=== PATIENT | male | born 1980 | race Caucasian/White ===

== ENCOUNTER 2017-12-23 13:58 | Inpatient (IN) | payer SELFPAY ==
[2017-12-23 17:34] VITALS: BMI 31.5
--- NOTE | 2017-12-23 18:39 | HP ---
COWS - Scale Resting Pulse: 1= [place] 81-100 Sweatin= Chills/Flushing Restless Observation: 1= Difficult to Sit Still Pupil Size: 1= Pupils >than Normal Bone or Joint Aches: 4=Acute Joint/Muscle Pain Runny Nose/ Eye Tearin= Nasal Congestion GI Upset > 30mins: 2= Nausea/Diarrhea Tremor Observation: 2= Slight Tremor Visible Yawning Observation: 1= 1-2x During Session Anxiety or Irritability: 2=Irritable/Anxious Goose Flesh Skin: 3=Piloerection COWS Score: 19 CIWA Score - CIWA Score Nausea/Vomitin Muscle Tremors: 3 Anxiety: 3 Agitation: 3 Paroxysmal Sweats: 3 Orientation: 0-Oriented Tacttile Disturbances: 0-None Auditory Disturbances: 0-None Visual Disturbances: 0-None Headache: 0-None Present CIWA-Ar Total Score: 15 Admission ROS S - HPI Allergies/Adverse Reactions: Allergies Allergy/AdvReac Type Severity Reaction Status Date / Time No Known Allergies Allergy Verified 12/23/17 18:20 - Ebola screening Have you traveled outside of the country in the last 21 days: No (N) Have you had contact with anyone from an Ebola affected area: No Have you been sick,other than usual withdrawal symptoms: No Do you have a fever: No Patient History - Patient Medical History Hx Anemia: No Hx Asthma: No Hx Chronic Obstructive Pulmonary Disease (COPD): No Hx Cancer: No Hx Cardiac Disorders: No Hx Congestive Heart Failure: No Hx Hypertension: No Hx Hypercholesterolemia: No Hx Pacemaker: No HX Cerebrovascular Accident: No Hx Seizures: No Hx Dementia: No Hx Diabetes: No Hx Gastrointestinal Disorders: No Hx Liver Disease: No Hx Genitourinary Disorders: No Hx Sexually Transmitted Disorders: No Hx Renal Disease (ESRD): No Hx Thyroid Disease: No Hx Human Immunodeficiency Virus (HIV): No Hx Hepatitis C: No Hx Depression: No Hx Suicide Attempt: No Hx Schizophrenia: No - Patient Surgical History Past Surgical History: Yes Hx Neurologic Surgery: No Hx Cataract Extraction: No Hx Cardiac Surgery: No Hx Lung Surgery: No Hx Breast Surgery: No Hx Breast Biopsy: No Hx Abdominal Surgery: No Hx Appendectomy: No Hx Cholecystectomy: No Hx Genitourinary Surgery: No Hx Section: No Hx Orthopedic Surgery: Yes (OPEN REDUCTION WITH INTERNAL FIXATION) Hx Hysterectomy: No Anesthesia Reaction: No - PPD History Previous Implant?: Yes Documented Results: Negative w/proof Date: 06/17/14 - Reproductive History Patient is a Female of Child Bearing Age (11 -55 yrs old): No Patient : No - Smoking Cessation Smoking history: Current every day smoker Have you smoked in the past 12 months: Yes Aproximately how many cigarettes per day: 10 If you are a former smoker, when did you quit?: X3 DAYS AGO Cigars Per Day: 15 Hx Chewing Tobacco Use: No Initiated information on smoking cessation: Yes 'Breaking Loose' booklet given: 12/23/17 - Substance & Tx. History Hx Alcohol Use: Yes Hx Substance Use: Yes (GHB pruiamry drug of use, amphetamines, xtc) Substance Use Type: Alcohol, Prescribed, Tranquilizers Hx Substance Use Treatment: Yes - Substances Abused Alcohol Route: Oral Frequency: 3-6 times per week Amount used: liquor- 1 pint Age of first use: 25 Date of Last Use: 12/23/17 Alprazolam (Xanax) Route: Oral Frequency: Daily Amount used: 1mg Age of first use: 37 Date of Last Use: 12/22/17 Roxycodone Route: Oral Frequency: Daily Amount used: 60mg Age of first use: 31 Date of Last Use: 12/23/17 Family Disease History - Family Disease History Family History: Denies Admission Physical Exam [facility] - Vital Signs Vital Signs: Vital Signs - 24 hr 12/23/17 17:27 Temperature 97.9 F Pulse Rate 100 H Respiratory 18 Rate Blood Pressure 128/74 - Physical General Appearance: Yes: Nourished, Appropriately Dressed, Disheveled, Mild Distress, Alcohol on Breath, Obese, Tremorous, Irritable, Sweating, Anxious HEENTM: Yes: EOMI, Hearing grossly Normal, Normocephalic, Normal Voice, [place], Pharynx Normal, Nasal Congestion, Rhinorrhea Respiratory: Yes: Within Normal Limits, Chest Non-Tender, Lungs Clear, Normal Breath Sounds, No Respiratory Distress, No Accessory Muscle Use Neck: Yes: Within Normal Limits, No masses,lesions,Nodules, Supple, Trachea in good position Breast: Yes: Breast Exam Deferred Cardiology: Yes: Within Normal Limits, Regular Rhythm, Regular Rate, S1, S2 Abdominal: Yes: Within Normal Limits, Normal Bowel Sounds, Non Tender, Flat, Soft Genitourinary: Yes: Within Normal Limits Back: Yes: Within Normal Limits, Normal Inspection Musculoskeletal: Yes: full range of Motion, Gait Steady, Pelvis Stable, Back pain, Muscle Pain Extremities: Yes: Normal Capillary Refill, Normal Range of Motion, Non-Tender, Tremors Neurological: Yes: research biologist II-XII NML intact, Fully Oriented, Alert, Motor Strength 5/5, Normal Response Integumentary: Yes: Warm, Diaphoresis, Moist Lymphatic: Yes: Within Normal Limits - Addiitonal Findings: withdrawal sx - Diagnostic (1) Alcohol dependence with uncomplicated withdrawal Current Visit: Yes Status: Acute (2) Dehydration Current Visit: Yes Status: Acute (3) Gammahydroxy butarate (GHB) use disorder, mild, abuse Current Visit: Yes Status: Acute (4) History of pulmonary embolism Current Visit: Yes Status: Acute (5) Nicotine dependence Current Visit: Yes Status: Acute (6) Opioid dependence with withdrawal Current Visit: Yes Status: Acute (7) Sedative, hypnotic or anxiolytic dependence with withdrawal, uncomplicated Current Visit: Yes Status: Acute (8) Substance induced mood disorder Current Visit: No Status: Acute Cleared for Admission [facility] - Detox or Rehab [facility] Level of Care: Medically Managed Detox Regimen/Protocol: Methadone/Valium [facility] Breath Alcohol Content Breath Alcohol Content: 0.144 Urine Drug Screen - Results Drug Screen Negative: No Urine Drug Screen Results: AMP-Amphetamines, MET-Methamphetamine, BZO- Benzodiazepines, OXY-Oxycodone
[2017-12-23] MEDS ORDERED: ACETAMINOPHEN 325 MG TABLET (FP) PO PRN (18:40)
[2017-12-23] MEDS ORDERED: LOPERAMIDE HCL 2 MG CAPSULE PO PRN (18:40)
[2017-12-23] MEDS ORDERED: MENTHOL/PHENOL 1 EACH UD MM PRN (18:40)
[2017-12-23] MEDS ORDERED: MAGNESIUM HYDROX 2400MG/30ML ORAL SUSPENSION 30 ML CUP PO PRN (18:40)
[2017-12-23] MEDS ORDERED: MAGNESIUM CITRATE 300 ML BOTTLE PO PRN (18:40)
[2017-12-23] MEDS ORDERED: METHADONE HCL 10 MG TABLET (FOR DETOX USE ONLY) PO ONE ×2 (18:40→23:00)
[2017-12-23] MEDS ORDERED: guaiFENesin/D-METHORPHAN HB 10 ML UNIT-DOSE CUPS PO PRN (18:40)
[2017-12-23] MEDS ORDERED: MAG HYDROX/AL HYDROX/SIMETH 30 ML UNIT-DOSE CUP PO PRN (18:40)
[2017-12-23] MEDS ORDERED: diazePAM 5 MG TABLET PO ONE (18:40)
[2017-12-23] MEDS ORDERED: IBUPROFEN 400 MG TABLET (FP) PO PRN (18:40)
[2017-12-23] MEDS ORDERED: P-EPHED 60MG/TRIPROLIDI 2.5MG TABLET PO PRN (18:40)
[2017-12-23] MEDS ORDERED: NICOTINE POLACRILEX 2 MG GUM BUC PRN (18:42)
[2017-12-23] MEDS: PANTOPRAZOLE 40 MG TABLET (FP) PO SCH (20:29)
[2017-12-23] MEDS: NICOTINE 14 MG/24 HOURS TOPICAL PATCH TD SCH (20:35)
[2017-12-23] MEDS: CYCLOBENZAPRINE HCL 5 MG TABLET PO SCH (22:17)
[2017-12-23] MEDS: THIAMINE HCL 100 MG TABLET (FP) PO SCH (22:17)
[2017-12-23] MEDS: NAPROXEN 500 MG TABLET (FP) PO SCH (22:18)
[2017-12-23] MEDS: diazePAM 5 MG TABLET PO SCH (22:18)
[2017-12-23] MEDS: cloNIDine HCL 0.1 MG TABLET PO SCH (22:18)
[2017-12-23] MEDS: ZOLPIDEM TARTRATE 10 MG TABLET (PARK CARE ONLY) PO PRN (22:18)
[2017-12-23 22:19] LABS: URINE APPEARANCE CLEAR; URINE BILIRUBIN NEGATIVE (NEGATIVE); URINE BLOOD NEGATIVE (NEGATIVE); URINE COLOR COLORLESS; URINE GLUCOSE (UA) NEGATIVE (NEGATIVE); URINE KETONE NEGATIVE (NEGATIVE); URINE LEUK ESTERASE NEGATIVE (NEGATIVE); URINE NITRITE NEGATIVE (NEGATIVE); URINE PROTEIN NEGATIVE (NEGATIVE); URINE UROBILINOGEN NEGATIVE mg/dL (0.2-1.0)
[2017-12-24] MEDS: CYCLOBENZAPRINE HCL 5 MG TABLET PO SCH ×3 (05:46→22:26)
[2017-12-24] MEDS: diazePAM 5 MG TABLET PO SCH ×3 (05:46→22:26)
[2017-12-24] MEDS: PANTOPRAZOLE 40 MG TABLET (FP) PO SCH (09:58)
[2017-12-24] MEDS: diazePAM 5 MG TABLET PO PRN ×2 (09:58→17:42)
[2017-12-24] MEDS: PRENATAL VITAMINS W/ FOLIC ACID TABLET (FP) PO SCH (09:58)
[2017-12-24] MEDS: NICOTINE 14 MG/24 HOURS TOPICAL PATCH TD SCH (09:59)
[2017-12-24] MEDS: cloNIDine HCL 0.1 MG TABLET PO SCH ×2 (09:59→22:26)
[2017-12-24] MEDS: NAPROXEN 500 MG TABLET (FP) PO SCH ×2 (09:59→22:26)
[2017-12-24] MEDS ORDERED: METHADONE HCL 10 MG TABLET (FOR DETOX USE ONLY) PO SCH (10:00)
[2017-12-24 10:05] LABS: HEMATOCRIT 44.3 % (35.4-49); HEMOGLOBIN 14.3 GM/dL (11.7-16.9); MCH 29.3 pg (25.7-33.7); MCHC 32.3 g/dl (32.0-35.9); MEAN CELL VOLUME 90.8 fl (80-96); MEAN PLT VOLUME 9.8 fl (7.5-11.1); PLATELET COUNT 204 K/MM3 (134-434); RBC 4.87 M/mm3 (4.00-5.60); RDW 14.1 % (11.9-15.9)
[2017-12-24 10:17] LABS: CHLORIDE 101 mmol/L (98-107); POTASSIUM 3.6 mmol/L (3.5-5.1); SODIUM 141 mmol/L (136-145)
[2017-12-24 10:34] LABS: ALBUMIN 3.6 g/dl (3.4-5.0); ALK PHOS 73 U/L (45-117); ANION GAP 8 (8-16); BILIRUBIN,TOTAL 1.1 mg/dL (0.2-1.0); BLOOD UREA NITROGEN 18 mg/dL (7-18); CALCIUM 8.2 mg/dL (8.5-10.1); CO2 32 mmol/L (21-32); CREATININE 1.4 mg/dL (0.7-1.3); GLUCOSE,RANDOM 81 mg/dL (74-106); SGOT/AST 42 U/L (15-37); SGPT/ALT 22 U/L (12-78); TOT PROT 5.9 g/dl (6.4-8.2)
--- NOTE | 2017-12-24 11:09 | CONSULT ---
[facility] Psychiatric Consult - Data Date of interview: 12/24/17 Admission source: [facility] Identifying data: Patient is approached at bedside for the psychiatric evaluation.Mr Brown,politely,declines conversation with this rfp writer." I am fine ,just tired.I don't have issues to discuss with psychiatrists.Thank you.I have been getting all the medications that I need." Nursing staff is made aware.
--- NOTE | 2017-12-24 14:25 | PN ---
[facility] Progress Note Note: Admission and Repeat ECG results noted. Patient denies any current chest pain, SOB, and dizziness. Patient denies any known history of cardiac disease or previous ECG abnormality. Patient advised to follow-up with APRN Dr. Mejia after discharge from detox for further medical assessment. Pt. verbalized understanding of recommendation. Miguel Angel Christian NP
--- NOTE | 2017-12-24 16:29 | PN ---
[facility] CIWA - CIWA Score Nausea/Vomitin-No Nausea/No Vomiting Muscle Tremors: 4-Moderate,w/Arms Extend Anxiety: 4-Mod. Anxious/Guarded Agitation: 4-Moderately Restless Paroxysmal Sweats: 1-Minimal Palms Moist Orientation: 0-Oriented Tacttile Disturbances: 3-Moderate Itch/Numb/Burn Auditory Disturbances: 0-None Visual Disturbances: 0-None Headache: 0-None Present CIWA-Ar Total Score: 16 S COWS - Scale Resting Pulse: 2= [place] 101-120 Sweatin= Chills/Flushing Restless Observation: 3= Extraneous Movement Pupil Size: 0= Normal to Room Light Bone or Joint Aches: 4=Acute Joint/Muscle Pain Runny Nose/ Eye Tearin= Nasal Congestion GI Upset > 30mins: 1= Stomach Cramp Tremor Observation of Outstretched Hands: 1= Tremor [place], Not Seen Yawning Observation: 1= 1-2x During Session Anxiety or Irritability: 2=Irritable/Anxious Goose Flesh Skin: 0=Smooth Skin COWS Score: 16 [facility] Progress Note (SOAP) Subjective: ANXIETY,SWEATS/CHILLS,SLIGHT TREMORS. Objective: 12/24/17 16:30 Vital Signs 12/24/17 12/24/17 09:17 13:00 Temperature 97.0 F L 96.8 F L Pulse Rate 106 H 106 H Respiratory 20 16 Rate Blood Pressure 93/67 99/69 Laboratory Last Values WBC 6.0 K/mm3 (4.0-10.0) D 12/24/17 07:00 RBC 4.87 M/mm3 (4.00-5.60) 12/24/17 07:00 Hgb 14.3 GM/dL (11.7-16.9) D 12/24/17 07:00 Hct 44.3 % (35.4-49) D 12/24/17 07:00 MCV 90.8 fl (80-96) 12/24/17 07:00 MCH 29.3 pg (25.7-33.7) 12/24/17 07:00 MCHC 32.3 g/dl (32.0-35.9) 12/24/17 07:00 RDW 14.1 % (11.9-15.9) 12/24/17 07:00 Plt Count 204 K/MM3 (134-434) D 12/24/17 07:00 MPV 9.8 fl (7.5-11.1) D 12/24/17 07:00 Sodium 141 mmol/L (136-145) 12/24/17 07:00 Potassium 3.6 mmol/L (3.5-5.1) 12/24/17 07:00 Chloride 101 mmol/L (98-107) 12/24/17 07:00 Carbon Dioxide 32 mmol/L (21-32) D 12/24/17 07:00 Anion Gap 8 (8-16) 12/24/17 07:00 BUN 18 mg/dL (7-18) D 12/24/17 07:00 Creatinine 1.4 mg/dL (0.7-1.3) H D 12/24/17 07:00 Creat Clearance w eGFR 57.03 (>60) 12/24/17 07:00 Random Glucose 81 mg/dL (74-106) D 12/24/17 07:00 Calcium 8.2 mg/dL (8.5-10.1) L 12/24/17 07:00 Total Bilirubin 1.1 mg/dL (0.2-1.0) H D 12/24/17 07:00 AST 42 U/L (15-37) H D 12/24/17 07:00 ALT 22 U/L (12-78) D 12/24/17 07:00 Alkaline Phosphatase 73 U/L (45-117) 12/24/17 07:00 Total Protein 5.9 g/dl (6.4-8.2) L 12/24/17 07:00 Albumin 3.6 g/dl (3.4-5.0) D 12/24/17 07:00 Urine Color Colorless 12/23/17 22:04 Urine Appearance Clear 12/23/17 22:04 Urine pH 6.0 (5.0-8.0) 12/23/17 22:04 Ur Specific [place] 1.003 (1.001-1.035) 12/23/17 22:04 Urine Protein Negative (NEGATIVE) 12/23/17 22:04 Urine Glucose (UA) Negative (NEGATIVE) 12/23/17 22:04 Urine Ketones Negative (NEGATIVE) 12/23/17 22:04 Urine Blood Negative (NEGATIVE) 12/23/17 22:04 Urine Nitrite Negative (NEGATIVE) 12/23/17 22:04 Urine Bilirubin Negative (NEGATIVE) 12/23/17 22:04 Urine Urobilinogen Negative mg/dL (0.2-1.0) 12/23/17 22:04 Ur Leukocyte Esterase Negative (NEGATIVE) 12/23/17 22:04 RPR Titer Nonreactive (NONREACTIVE) 12/24/17 07:00 HIV 1&2 Antibody Screen Negative 12/24/17 07:00 HIV P24 Antigen Negative 12/24/17 07:00 Assessment: 12/24/17 16:31 WITHDRAWAL SX Plan: CONTINUE DETOX INCREASE PO FLUIDS.
[2017-12-24] MEDS: ZOLPIDEM TARTRATE 10 MG TABLET (PARK CARE ONLY) PO PRN (22:26)
[2017-12-24] MEDS: THIAMINE HCL 100 MG TABLET (FP) PO SCH (22:26)
[2017-12-25] MEDS: CYCLOBENZAPRINE HCL 5 MG TABLET PO SCH ×3 (05:36→22:28)
[2017-12-25] MEDS: NAPROXEN 500 MG TABLET (FP) PO SCH ×2 (10:31→22:28)
[2017-12-25] MEDS: diazePAM 5 MG TABLET PO SCH ×2 (10:31→22:28)
[2017-12-25] MEDS: METHADONE HCL 5 MG TABLET (FOR DETOX USE ONLY) PO SCH (10:31)
[2017-12-25] MEDS: PRENATAL VITAMINS W/ FOLIC ACID TABLET (FP) PO SCH (10:31)
[2017-12-25] MEDS: cloNIDine HCL 0.1 MG TABLET PO SCH ×2 (10:31→22:28)
[2017-12-25] MEDS: PANTOPRAZOLE 40 MG TABLET (FP) PO SCH (10:31)
[2017-12-25] MEDS: NICOTINE 14 MG/24 HOURS TOPICAL PATCH TD SCH (10:41)
[2017-12-25] MEDS: diazePAM 5 MG TABLET PO PRN ×2 (12:00→17:13)
--- NOTE | 2017-12-25 14:59 | PN ---
[facility] CIWA - CIWA Score Nausea/Vomitin-No Nausea/No Vomiting Muscle Tremors: 3 Anxiety: 3 Agitation: 2 Paroxysmal Sweats: 3 Orientation: 0-Oriented Tacttile Disturbances: 2-Mild Itch/Numbness/Burn Auditory Disturbances: 0-None Visual Disturbances: 2-Mild Sensitivity Headache: 0-None Present CIWA-Ar Total Score: 15 [facility] COWS - Scale Resting Pulse: 1= [place] 81-100 Sweatin= Chills/Flushing Restless Observation: 1= Difficult to Sit Still Pupil Size: 0= Normal to Room Light Bone or Joint Aches: 2= Severe Diffuse Aches Runny Nose/ Eye Tearin= None GI Upset > 30mins: 1= Stomach Cramp Tremor Observation of Outstretched Hands: 2= Slight Tremor Visible Yawning Observation: 1= 1-2x During Session Anxiety or Irritability: 2=Irritable/Anxious Goose Flesh Skin: 3=Piloerection COWS Score: 14 [facility] Progress Note (SOAP) Subjective: Stomach Cramping, Tremors, Sweating, Anxious. Objective: PT. A & O X 3, OBSERVED AMBULATING ON UNIT. NO ACUTE DISTRESS. 12/25/17 15:00 Laboratory Tests 12/23/17 12/24/17 12/24/17 22:04 07:00 07:00 WBC 6.0 D RBC 4.87 Hgb 14.3 D Hct 44.3 D MCV 90.8 MCH 29.3 MCHC 32.3 RDW 14.1 Plt Count 204 D MPV 9.8 D Sodium Potassium Chloride Carbon Dioxide Anion Gap BUN Creatinine Creat Clearance w eGFR Random Glucose Calcium Total Bilirubin AST ALT Alkaline Phosphatase Total Protein Albumin Urine Color Colorless Urine Appearance Clear Urine pH 6.0 Ur Specific [place] 1.003 Urine Protein Negative Urine Glucose (UA) Negative Urine Ketones Negative Urine Blood Negative Urine Nitrite Negative Urine Bilirubin Negative Urine Urobilinogen Negative Ur Leukocyte Esterase Negative RPR Titer HIV 1&2 Antibody Screen Negative HIV P24 Antigen Negative 12/24/17 12/24/17 07:00 07:00 WBC RBC Hgb Hct MCV MCH MCHC RDW Plt Count MPV Sodium 141 Potassium 3.6 Chloride 101 Carbon Dioxide 32 D Anion Gap 8 BUN 18 D Creatinine 1.4 H D Creat Clearance w eGFR 57.03 Random Glucose 81 D Calcium 8.2 L Total Bilirubin 1.1 H D AST 42 H D ALT 22 D Alkaline Phosphatase 73 Total Protein 5.9 L Albumin 3.6 D Urine Color Urine Appearance Urine pH Ur Specific [place] Urine Protein Urine Glucose (UA) Urine Ketones Urine Blood Urine Nitrite Urine Bilirubin Urine Urobilinogen Ur Leukocyte Esterase RPR Titer Nonreactive HIV 1&2 Antibody Screen HIV P24 Antigen LABS NOTED. Assessment: 12/25/17 15:00 WITHDRAWAL SYMPTOMS. Plan: CONTINUE DETOX.
[2017-12-25] MEDS: ZOLPIDEM TARTRATE 10 MG TABLET (PARK CARE ONLY) PO PRN (22:28)
[2017-12-25] MEDS: THIAMINE HCL 100 MG TABLET (FP) PO SCH (22:28)
[2017-12-26] MEDS: CYCLOBENZAPRINE HCL 5 MG TABLET PO SCH ×3 (06:10→22:03)
[2017-12-26] MEDS: cloNIDine HCL 0.1 MG TABLET PO SCH ×2 (10:20→22:03)
[2017-12-26] MEDS: diazePAM 5 MG TABLET PO SCH ×2 (10:20→22:04)
[2017-12-26] MEDS: NAPROXEN 500 MG TABLET (FP) PO SCH ×2 (10:20→22:04)
[2017-12-26] MEDS: METHADONE HCL 5 MG TABLET (FOR DETOX USE ONLY) PO SCH (10:20)
[2017-12-26] MEDS: PANTOPRAZOLE 40 MG TABLET (FP) PO SCH (10:20)
[2017-12-26] MEDS: PRENATAL VITAMINS W/ FOLIC ACID TABLET (FP) PO SCH (10:20)
[2017-12-26] MEDS: NICOTINE 14 MG/24 HOURS TOPICAL PATCH TD SCH (10:21)
--- NOTE | 2017-12-26 13:28 | EKG ---
Test Reason : Blood Pressure : / mmHG Vent. Rate : 079 BPM Atrial Rate : 079 BPM P-R Int : 164 ms QRS Dur : 114 ms QT Int : 440 ms P-R-T Axes : 043 000 -10 degrees QTc Int : 504 ms NORMAL SINUS RHYTHM INCOMPLETE RIGHT BUNDLE BRANCH BLOCK POOR R WAVE PROGRESSION PROLONGED QT ABNORMAL ECG WHEN COMPARED WITH ECG OF 23-DEC-2017 20:27, QT HAS SHORTENED CLINICAL CORRELATION IS RECOMMENDED Confirmed by BRIDGETTE ROBBINS, VALERIE ([id number]) on 12/26/2017 1:27:55 PM Referred By: Confirmed By:VALERIE ANGELES MD
[2017-12-26] MEDS: diazePAM 5 MG TABLET PO PRN (14:07)
--- NOTE | 2017-12-26 14:09 | PN ---
[facility] Progress Note (SOAP) Subjective: Fatigue, Sweating. Objective: PT A & O X 3, OBSERVED AMBULATING ON UNIT. NO ACUTE DISTRESS. 12/26/17 14:07 Vital Signs Temperature 98.4 F 12/26/17 09:43 Pulse Rate 80 12/26/17 09:43 Respiratory Rate 20 12/26/17 09:43 Blood Pressure 107/67 12/26/17 09:43 O2 Sat by Pulse Oximetry (%) Laboratory Tests 12/23/17 12/24/17 12/24/17 22:04 07:00 07:00 WBC 6.0 D RBC 4.87 Hgb 14.3 D Hct 44.3 D MCV 90.8 MCH 29.3 MCHC 32.3 RDW 14.1 Plt Count 204 D MPV 9.8 D Sodium Potassium Chloride Carbon Dioxide Anion Gap BUN Creatinine Creat Clearance w eGFR Random Glucose Calcium Total Bilirubin AST ALT Alkaline Phosphatase Total Protein Albumin Urine Color Colorless Urine Appearance Clear Urine pH 6.0 Ur Specific [place] 1.003 Urine Protein Negative Urine Glucose (UA) Negative Urine Ketones Negative Urine Blood Negative Urine Nitrite Negative Urine Bilirubin Negative Urine Urobilinogen Negative Ur Leukocyte Esterase Negative RPR Titer HIV 1&2 Antibody Screen Negative HIV P24 Antigen Negative 12/24/17 12/24/17 07:00 07:00 WBC RBC Hgb Hct MCV MCH MCHC RDW Plt Count MPV Sodium 141 Potassium 3.6 Chloride 101 Carbon Dioxide 32 D Anion Gap 8 BUN 18 D Creatinine 1.4 H D Creat Clearance w eGFR 57.03 Random Glucose 81 D Calcium 8.2 L Total Bilirubin 1.1 H D AST 42 H D ALT 22 D Alkaline Phosphatase 73 Total Protein 5.9 L Albumin 3.6 D Urine Color Urine Appearance Urine pH Ur Specific [place] Urine Protein Urine Glucose (UA) Urine Ketones Urine Blood Urine Nitrite Urine Bilirubin Urine Urobilinogen Ur Leukocyte Esterase RPR Titer Nonreactive HIV 1&2 Antibody Screen HIV P24 Antigen LABS NOTED. Assessment: 12/26/17 14:07 WITHDRAWAL SYMPTOMS. Plan: CONTINUE DETOX. INCREASE DAILY PO FLUID INTAKE. PATIENT REPORTS THAT CURRENT SEVERITY LEVEL OF DETOX SYMPTOMS IS TOLERABLE FOR HIM. AT PATIENT'S REQUEST, DETOX MEDICATION REGIMEN MODIFIED SO THAT PATIENT MAY BE DISCHARGED TOMORROW, 12/27/2017.
[2017-12-26] MEDS: THIAMINE HCL 100 MG TABLET (FP) PO SCH (22:04)
[2017-12-27] MEDS ORDERED: METHADONE HCL 5 MG TABLET (FOR DETOX USE ONLY) PO SCH (06:00)
[2017-12-27 06:58] VITALS: BP 109/75; PULSE 51; TEMP 97.5
[2017-12-27] MEDS: CYCLOBENZAPRINE HCL 5 MG TABLET PO SCH (07:15)
[2017-12-27] MEDS ORDERED: METHADONE HCL 10 MG TABLET (FOR DETOX USE ONLY) PO SCH (10:00)
[2017-12-27] MEDS ORDERED: diazePAM 5 MG TABLET PO SCH (10:00)
--- NOTE | 2017-12-27 12:44 | DS ---
[facility] Detox Discharge Summary Admission Date: 12/23/17 Discharge Date: 12/27/17 - History Additional Comments: Pt is A & O x 3, ambulating steadily, waiting to be picked up from unit by father - Physical Exam Results Vital Signs: Vital Signs Temperature 97.5 F L 12/27/17 06:57 Pulse Rate 51 L 12/27/17 06:57 Respiratory Rate 18 12/27/17 06:57 Blood Pressure 109/75 12/27/17 06:57 O2 Sat by Pulse Oximetry (%) Pertinent Admission Physical Exam Findings: withdrawal sx - Treatment Hospital Course: Detox Protocol Followed, Detoxed Safely, Responded well, Discharged Condition Good, Rehab Referral Accepted Patient has Accepted a Rehab Referral to: [facility] - Medication Discharge Medications: Ambulatory Orders Acetaminophen [Tylenol .Regular Strength -] 650 mg PO Q6H PRN #0 tablet Arformoterol Tartrate [Brovana -] 1 neb NEB BID #0 vial 06/15/14 Escitalopram Oxalate [Lexapro -] 20 mg PO DAILY #0 tablet 06/15/14 Lactobacillus Acidophilus [Bacid -] 1 each PO BID #0 tab 06/15/14 Ranitidine [Zantac -] 150 mg PO DAILY #0 tablet 06/15/14 Quetiapine Fumarate [Seroquel -] 50 mg PO HS #30 tablet 06/29/14 Rivaroxaban [Xarelto -] 20 mg PO DAILY #30 tablet 06/29/14 - Diagnosis (1) Alcohol dependence with uncomplicated withdrawal Status: Acute (2) Nicotine dependence Status: Acute Qualifiers: Nicotine product type: cigarettes Substance use status: uncomplicated Qualified Code(s): F17.210 - Nicotine dependence, cigarettes, uncomplicated (3) Opioid dependence with withdrawal Status: Acute (4) Sedative, hypnotic or anxiolytic dependence with withdrawal, uncomplicated Status: Acute - AMA Did Patient Leave Against Medical Advice: No
[2017-12-28] MEDS ORDERED: METHADONE HCL 5 MG TABLET (FOR DETOX USE ONLY) PO SCH (06:00)
== END 2017-12-27 09:10 | disposition home or self-care (01) | DRG 773 ==
LOC: YASAS 13:58 → Y3N 18:08
PROVIDERS: ADMIT Internal Medicine; ATTEND Internal Medicine
PROC: HZ2ZZZZ Detoxification Services for Substance Abuse Treatment (ICD-10-PCS; principal; 2017-12-23)
DX: F11.23 Opioid dependence with withdrawal (principal); F13.230 Sedative, hypnotic or anxiolytic dependence with withdrawal, uncomplicated; F10.230 Alcohol dependence with withdrawal, uncomplicated; F17.210 Nicotine dependence, cigarettes, uncomplicated; F19.10 Other psychoactive substance abuse, uncomplicated; F19.24 Other psychoactive substance dependence with psychoactive substance-induced mood disorder; E86.0 Dehydration; E66.9 Obesity, unspecified; Z68.31 Body mass index [BMI] 31.0-31.9, adult; Z86.711 Personal history of pulmonary embolism
CPT/HCPCS: 36415; 80053; 81003; 85027; 86593; 87389; 93005; 93010; J0735

== ENCOUNTER 2021-07-30 09:25 | Emergency (ER) | payer BC, OTHER ==
[2021-07-30 09:32] VITALS: BP 115/75; PULSE 82; TEMP 98; BMI 30.8
[2021-07-30 10:31] LABS: BASO % 0.6 % (0-2.0); EOS % 2.7 % (0-4.5); HEMOGLOBIN 16.1 GM/dL (11.7-16.9); LYMPH % 25.9 % (8-40); MCH 29.6 pg (25.7-33.7); MCHC 34.3 g/dl (32.0-35.9); MEAN CELL VOLUME 86.3 fl (80-96); MEAN PLT VOLUME 7.5 fl (7.5-11.1); MONO % 13.6 % (3.8-10.2); NEUT % 57.2 % (42.8-82.8); PLATELET COUNT 310 10^3/uL (134-434); RBC 5.44 M/mm3 (4.00-5.60); RDW 13.4 % (11.9-15.9); WHITE BLOOD COUNT 3.7 K/mm3 (4.0-10.0)
[2021-07-30 10:38] LABS: INR 1.07 (0.83-1.09); PROTHROMBIN TIME (PATIENT) 13.1 SEC (9.7-13.0)
[2021-07-30 10:49] LABS: CHLORIDE 106 mmol/L (98-107); SODIUM 141 mmol/L (136-145)
[2021-07-30 10:51] LABS: CALCIUM 9.3 mg/dL (8.5-10.1)
[2021-07-30 10:52] LABS: ALBUMIN 3.3 g/dl (3.4-5.0); ANION GAP 3 MMOL/L (8-16); BLOOD UREA NITROGEN 15.4 mg/dL (7-18); CO2 33 mmol/L (21-32); GLUCOSE,RANDOM 89 mg/dL (74-106)
[2021-07-30 10:55] LABS: CREATININE 0.9 mg/dL (0.55-1.3); SGOT/AST 23 U/L (15-37); SGPT/ALT 16 U/L (13-61)
[2021-07-30 10:56] LABS: BILIRUBIN,TOTAL 0.4 mg/dL (0.2-1); TOT PROT 7.2 g/dl (6.4-8.2)
[2021-07-30 10:57] LABS: ALK PHOS 67 U/L (45-117)
== END 2021-07-30 13:05 | disposition home or self-care (01) ==
LOC: JER 09:25
DX: R06.02 Shortness of breath (principal); R06.00 Dyspnea, unspecified
CPT/HCPCS: 36415; 71045-TC-FY; 71275-TC; 80053; 82550; 84443; 84484; 85025; 85610; 93005; 93010; 99285-25; Q9967

== ENCOUNTER 2022-06-11 13:00 | Emergency (ER) | payer BC ==
[2022-06-11] MEDS ORDERED: SODIUM CHLORIDE 1,000 ML IV STA (13:45)
[2022-06-11] MEDS ORDERED: PANTOPRAZOLE SODIUM 40 MG VIAL IVPUSH ONE (13:45)
[2022-06-11] MEDS ORDERED: PANTOPRAZOLE SODIUM 40 MG VIAL ONE (13:53)
[2022-06-11 14:49] LABS: HEMATOCRIT 49.7 % (35.4-49); HEMOGLOBIN 17.3 G/dL (11.7-16.9); MCH 31.2 pg (25.7-33.7); MCHC 34.7 g/dl (32.0-35.9); MEAN CELL VOLUME 89.8 fl (80-96); MEAN PLT VOLUME 9.7 fl (7.5-11.1); PLATELET COUNT 197.5 10^3/uL (134-434); RBC 5.54 10^6/uL (4.00-5.60); RDW 14.5 % (11.9-15.9); WHITE BLOOD COUNT 6.9 10^3/uL (4.0-10.8)
[2022-06-11 15:21] LABS: ALBUMIN 3.7 g/dl (3.4-5.0); BILIRUBIN,TOTAL 0.9 mg/dl (0.2-1); CALCIUM 8.9 mg/dl (8.5-10); TOT PROT 6.1 g/dl (6.4-8.2)
[2022-06-11 16:16] VITALS: BP 137/86; PULSE 94; TEMP 98.4; BMI 31.5
== END 2022-06-11 16:16 | disposition home or self-care (01) ==
LOC: FER 13:00
DX: K57.92 Diverticulitis of intestine, part unspecified, without perforation or abscess without bleeding (principal)
CPT/HCPCS: 36415; 74177-TC; 80053; 81003; 85027; 99285-25; Q9967